=== PATIENT | female | born 1970 | race Caucasian/White ===

== ENCOUNTER → 2019-11-15 | Outpatient (CLI) | payer OTHER | LOC: MRI 09:13 | DX: M51.26 Other intervertebral disc displacement, lumbar region (principal); M46.86 Other specified inflammatory spondylopathies, lumbar region; M48.061 Spinal stenosis, lumbar region without neurogenic claudication; J44.1 Chronic obstructive pulmonary disease with (acute) exacerbation; K21.9 Gastro-esophageal reflux disease without esophagitis; E03.9 Hypothyroidism, unspecified; I11.0 Hypertensive heart disease with heart failure; I50.22 Chronic systolic (congestive) heart failure; M54.42 Lumbago with sciatica, left side; M54.41 Lumbago with sciatica, right side ==

== ENCOUNTER → 2020-02-14 | Outpatient (CLI) | payer OTHER ==
[~2020-02-14] MED LIST: ATIVAN0.5 M1 PO; BREO ELLIPTA 11 EACH INH; DEMADEX20 MG PO; ELIQUIS2.5 MG PO; KLOR-CON 10 ER10 MEQ PO; LEVO-T75 MCG PO; LINZESS290 MCG PO; METOLAZONE 5 MG5 MG PO; NICOTINE TRANSD14 M1 TRANSDERM; NORCO 5-325 TA1 EAC2 PO; PLAVIX 75 MG TA75 MG PO; TOPROL XL25 MG PO; TORSEMIDE20 MG PO; TRAZODONE HCL100 MG PO; VENLAFAXINE HC150 M1 PO; VENTOLIN HFA 1818 GM INH; ZESTRIL10 MG PO
== END ==
LOC: MRI 14:17
PROVIDERS: ATTEND Internal Medicine
DX: M51.34 Other intervertebral disc degeneration, thoracic region (principal); M51.44 Schmorl's nodes, thoracic region; M48.02 Spinal stenosis, cervical region; J44.1 Chronic obstructive pulmonary disease with (acute) exacerbation; R06.02 Shortness of breath; E03.9 Hypothyroidism, unspecified; I10 Essential (primary) hypertension; F41.9 Anxiety disorder, unspecified; F32.9 Major depressive disorder, single episode, unspecified

== ENCOUNTER → 2020-06-08 | Outpatient (CLI) | payer OTHER ==
[~2020-06-08] MED LIST changes: +ARMOUR THYROID60 M1 PO; +DESYREL150 MG PO; +LISINOPRIL PO; +NORCO 10-325 T1 EACH PO; +SPIRONOLACTONE25 MG PO; -TOPROL XL25 MG PO; +TOPROL XL50 MG PO; -TRAZODONE HCL100 MG PO; +ZANAFLEX4 M1 PO; -ZESTRIL10 MG PO
== END ==
LOC: RAD 13:49
PROVIDERS: ATTEND Internal Medicine Rheumatology
DX: M25.561 Pain in right knee (principal); G89.29 Other chronic pain; M54.5 Low back pain; M15.9 Polyosteoarthritis, unspecified; M25.50 Pain in unspecified joint